=== PATIENT | female | born 1975 | race Caucasian/White ===

== ENCOUNTER 2016-11-06 13:58 | Emergency (ER) | payer OTHER, SELFPAY ==
[2016-11-06] MEDS ORDERED: methylPREDNISolone Acetate 40 mg/ml Vial ONE (15:08)
[2016-11-06] MEDS ORDERED: Dexamethasone 4 mg/ml Vial ONE (15:09)
--- NOTE | 2016-11-06 15:18 | RAD ---
LEFT WRIST THREE VIEWS: History: Navicular pain. Comparison: 08-22-16 FINDINGS: Intercarpal and radiocarpal joint spaces are preserved. Based on the images provided, no fractures. No cortical irregularity. IMPRESSION: Unremarkable left wrist radiographic series. POS: [facility]
--- NOTE | 2016-11-06 15:23 | ERRECORD ---
[facility] HPI WRIST (14:20 SHAN) CHIEF COMPLAINT: Patient presents for evaluation of pain, to the left wrist. HISTORIAN: History provided by patient. SEVERITY: gradually getting worse over last week; no recalled trauma. TIME COURSE: Gradual onset of symptoms. ROS (14:21 SHAN) CONSTITUTIONAL: Negative constitutional review of systems. EYES: Negative eye review of systems. ENT: Negative ears, nose, throat review of systems. CARDIOVASCULAR: Negative cardiovascular review of systems. RESPIRATORY: Negative respiratory review of systems. GI: Negative gastrointestinal review of systems. GENITOURINARY FEMALE: Negative genitourinary review of systems. MUSCULOSKELETAL: Negative musculoskeletal review of systems, left wrist pain. SKIN: Negative skin review of systems. NEUROLOGIC: Negative neurologic review of systems. ENDOCRINE: Negative endocrine review of systems. NOTES: All systems reviewed, negative except as described above. 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 verified 08/22/16. 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 PSYCHIATRIC HISTORY: no previous inpatient psychiatric admissions, Psychiatric history includes, bipolar disorder, Notes: HX DEPRESSION. SOCIAL HISTORY: Patient denies alcohol use, Patient denies drug use, Patient is a former tobacco user, smoked cigarettes, Tobacco history notes: quit 2 years ago, Lives at home, with family.verified. KNOWN ALLERGIES Iodinated Contrast Media - IV Dye: - tolerated if given benadryl first morphine (bulk) Sulfa (Sulfonamide Antibiotics) Toradol Oral CURRENT MEDICATIONS (14:13 BDON) None &a-1R&a+25V*p+0X*d7151U*c202B*c15G*c2P*p-0X&a-25V&a+1R Name: Maria De Jesus Venegas : 1975 F41 MedRec: [id number] AcctNum: [id number] Prepared: Olinda Nov 06, 2016 15:42 by Interface Page [address] [facility] [place] EMERGENCY RECORD VITAL SIGNS VITAL SIGNS: BP: 135/92, Pulse: 86, Resp: 17, Temp: 98.6 (Oral), Pain: 3, O2 sat: 99, Time: 11/06/2016 14:10. (14:10 BDON) Resp: 18, Pain: 3, Time: 11/06/2016 15:26. (15:26 BDON) PHYSICAL EXAM (14:21 SHAN) CONSTITUTIONAL: Patient afebrile, Pulse normal, Blood pressure normal, Respiratory rate normal, Patient appears non toxic, Patient appears pain free, Patient alert and oriented to person, place and time. HEAD: Head exam included findings of head atraumatic, normocephalic. EYES: Eye exam normal, Eye exam included findings of eyelids normal to inspection, Pupils equally round and reactive to light, Extraocular muscles intact. ENT: ENT exam normal, Pharynx exam normal, Uvula exam normal, Tonsil exam normal. NECK: Neck exam normal, Neck exam included findings of normal range of motion, Trachea midline. RESPIRATORY CHEST: Respiratory and chest exam normal, Chest exam included findings of chest movement symmetrical, Chest expansion equal, Percussion normal. CARDIOVASCULAR: Cardiovascular assessment normal, Cardiovascular exam included findings of heart rate regular rate and rhythm, Heart sounds normal. ABDOMEN FEMALE: Abdominal exam normal, Abdominal exam included findings of abdomen nontender, Bowel sounds normal. BACK: Back exam normal. UPPER EXTREMITY: Right arm and hand normal. Left wrist with medial tenderness, including over the navicular but not localized; more on turning the wrist. No visible deformity. Patient believes is swollen; but if is, is not clearly visible to examiner. 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 LOWER EXTREMITY: Lower extremity exam normal, Lower extremity exam included findings of inspection normal, Range of motion normal. NEURO: Neuro exam normal. SKIN: Skin exam normal. PSYCHIATRIC: Psychiatric exam normal, Psychiatric exam included findings of patient oriented to person place and time, Normal affect, Judgment normal, Insight normal. MEDICATION ADMINISTRATION SUMMARY Drug Name: Depo-Medrol intramuscular, Dose Ordered: 120 mg, Route: Intramuscular, Status: Given, Time: 15:22 11/06/2016, Drug Name: Decadron injection, Dose Ordered: 6 mg, Route: Intramuscular, Status: Given, Time: 15:21 11/06/2016, Detailed record available in Medication Service section. &a-1R&a+25V*p+0X*[id number]*c202B*c15G*c2P*p-0X&a-25V&a+1R Name: Maria De Jesus Venegas : 1975 11 MedRec: [id number] AcctNum: [id number] Prepared: Olinda Nov 06, 2016 15:42 by Interface Page [address] [facility] [place] EMERGENCY RECORD DOCTOR NOTES TEXT: Patient with left medial wrist pain, gradually worsening; no clear trauma. Exam w/o diagnostic assistance. (14:26 CAMILA) Discussed treatment options; is on aspirin for 'holes in heart'; anti-inflammatory agents/nsaids out; allowed brandi wrap and IM steroids. x-rays negative. (15:05 CAMILA) DATA REVIEWED: Xray data reviewed. (15:05 CAMILA) PROBLEM LIST No recorded problems DIAGNOSIS (15:06 CAMILA) FINAL: PRIMARY: tendonitis of left wrist. PRESCRIPTION No recorded prescriptions DISPOSITION PATIENT: Disposition Type: Discharge, Disposition: *Discharge Home. (15:06 CAMILA) Patient left the department. (15:37 BDKO) Rodríguez: RYAN=TOÑO Cunningham, Brigette JENSEN=MD Anisha, Dangelo &a-1R&a+25V*p+0X*[id number]*c202B*c15G*c2P*p-0X&a-25V&a+1R Name: Maria De Jesus Venegas : 1975 11 MedRec: [id number] AcctNum: [id number] Prepared: Olinda Nov 06, 2016 15:42 by Interface Page 3 of 3 pMD MTDD
--- NOTE | 2016-11-06 15:23 | PICIS ---
[facility] EMERGENCY RECORD TRIAGE (MonNov 06, 2016 14:13 BDON) TRIAGE NOTES: Left wrist "amy" some types of movement will make it hurt more. (MonNov 06, 2016 14:13 BDON) PATIENT: NAME: Maria De Jesus Venegas, AGE: 41, GENDER: female, : Mon1975, TIME OF GREET: MonNov 06, 2016 13:59, PREFERRED LANGUAGE: Guatemalan, ETHNICITY: Not or , ECODE BILLING MAP: [facility], SSN: [id number], Zip Code: [address], KG WEIGHT: 77.11, PHONE: , , , PERSON ID: [id number], PCP: out of town. ([place] Nov 06, 2016 14:13 BDON) COMPLAINT: PAIN IN RT WRIST. ([place] Nov 06, 2016 14:13 BDON) ADMISSION: URGENCY: 4 Non Urgent, ADMISSION SOURCE: Home, TRANSPORT: Walk-in, BED: TRIAGE. ([place] Nov 06, 2016 14:13 BDON) ASSESSMENT: Assessment: Left wrist pain, denies injury, hurts with certain motion, Symptoms began greater than 1 week ago. (14:15 BDON) LMP: Last menstrual period: 10/23/2016. (14:15 BDON) TREATMENTS IN PROGRESS: Treatments given Prehospital: tylenol 1000mg 1300. (14:15 BDON) PROVIDERS: TRIAGE NURSE: Brigette Cunningham RN. ([place] Nov 06, 2016 14:13 BDON) VITAL SIGNS: BP 135/92, Pulse 86, Resp 17, Temp 98.6, (Oral), Pain 3, O2 Sat 99, Time 11/06/2016 14:10. (14:10 BDON) PREVIOUS VISIT ALLERGIES: Iodinated Contrast Media - IV Dye, morphine (bulk), Sulfa (Sulfonamide Antibiotics), Toradol Oral. ([place] Nov 06, 2016 14:13 BDON) Iodinated Contrast Media - IV Dye, morphine (bulk), Sulfa (Sulfonamide Antibiotics), Toradol Oral. (14:15 BDON) KNOWN ALLERGIES Iodinated Contrast Media - IV Dye: - tolerated if given benadryl first morphine (bulk) Sulfa (Sulfonamide Antibiotics) Toradol Oral CURRENT MEDICATIONS (14:13 BDON) None VITAL SIGNS VITAL SIGNS: BP: 135/92, Pulse: 86, Resp: 17, Temp: 98.6 (Oral), Pain: 3, O2 sat: 99, Time: 11/06/2016 14:10. (14:10 BDON) Resp: 18, Pain: 3, Time: 11/06/2016 15:26. (15:26 BDON) NURSING ASSESSMENT: EXTREMITY UPPER (14:18 BDON) CONSTITUTIONAL: Patient arrives ambulatory, Gait steady, History obtained from patient, Patient appears comfortable, Patient cooperative, Patient alert, Oriented to person, place and time, Skin warm, Skin dry, Skin normal in color. PAIN: to the left wrist. &a-1R&a+25V*p+0X*y6647O*c202B*c15G*c2P*p-0X&a-25V&a+1R Name: Maria De Jesus Venegas : 1975 F41 MedRec: [id number] AcctNum: [id number] Prepared: Olinda Nov 06, 2016 15:48 by Interface Page 1 of 5 pMD [facility] EMERGENCY RECORD LEFT UPPER EXTREMITY: Left upper extremity assessment findings include capillary refill less than 2 seconds, Skin color normal to hand, Skin temperature to hand warm, Distal sensation intact, Muscle tone normal, Inspection findings include no swelling, Notes: "knot" on wrist...denies injury. SAFETY: Cart/Stretcher in lowest position, Family at bedside, Hospital ID band on, Patient in view of the nursing station. NURSING PROCEDURE: DISCHARGE NOTE (15:26 BDON) DISCHARGE: Patient discharged to home, ambulating without assistance, driving self, accompanied by other family member, Summary of Care printed/ provided, Patient requested and was provided an electronic copy of Discharge Instructions, Transition record given to patient, Discharge instructions given to patient, Simple or moderate discharge teaching performed, Prescriptions given and instructions on side effects given, Medication reconciliation form given, Above person(s) verbalized understanding of discharge instructions and follow-up care, Patient treated and evaluated by physician. VITAL SIGNS: Resp: 18, Pain: 3. NURSING PROCEDURE: SPLINTING (15:06 BDON) SPLINTING: Splinting indicated for pain control, Splint applied to, the left wrist, 3 inch brandi wrap applied. ORDER DETAILS Order Name: brandi wrap to left wrist, Status: Active, Time: 15:03 11/06/2016, User: CAMILA, - Ordered for: MD Lancaster Stanley, - Entered by: MD Lanacster Stanley - Olinda Nov 06, 2016 15:03, - Quantity: 1, Order Name: XR Wrist 3 Lt View STANDARD, Status: Active, Time: 14:25 11/06/2016, User: CAMILA, - Ordered for: MD Lancastre Stanley, - Entered by: MD Lancaster Stanley - Olinda Nov 06, 2016 14:25, - Quantity: 1. MEDICATION ADMINISTRATION SUMMARY Drug Name: Depo-Medrol intramuscular, Dose Ordered: 120 mg, Route: Intramuscular, Status: Given, Time: 15:22 11/06/2016, Drug Name: Decadron injection, Dose Ordered: 6 mg, Route: Intramuscular, Status: Given, Time: 15:21 11/06/2016, Detailed record available in Medication Service section. MEDICATION SERVICE Decadron injection: Order: Decadron injection (dexamethasone sod phosphate) - Dose: 6 mg : Intramuscular Schedule: Now Ordered by: Dangelo Lancaster MD &a-1R&a+25V*p+0X*i5182D*c202B*c15G*c2P*p-0X&a-25V&a+1R Name: Maria De Jesus Venegas : 1975 F41 MedRec: [id number] AcctNum: [id number] Prepared: Olinda Nov 06, 2016 15:48 by Interface Page 2 of 5 pMD [facility] EMERGENCY RECORD Entered by: MD Olinda Noyola Nov 06, 2016 15:04 Documented as given by: TOÑO Richards Nov 06, 2016 15:21 Patient, Medication, Dose, Route and Time verified prior to administration. IM medication, Amount given: 6 mg, Medication administered to left thigh, Correct patient, time, route, dose and medication confirmed prior to administration, Patient advised of actions and side-effects prior to administration, Allergies confirmed and medications reviewed prior to administration, im. Depo-Medrol intramuscular: Order: Depo-Medrol intramuscular (methylprednisolone acetate) - Dose: 120 mg : Intramuscular Schedule: Now Ordered by: Dangelo Lancaster MD Entered by: MD Olinda Noyola Nov 06, 2016 15:05 Documented as given by: TOÑO Richards Nov 06, 2016 15:22 Patient, Medication, Dose, Route and Time verified prior to administration. IM medication, Amount given: 120 mg, Medication administered to right thigh, Patient in position of comfort, Cart in lowest position, Family at bedside. HPI WRIST (14:20 SHAN) CHIEF COMPLAINT: Patient presents for evaluation of pain, to the left wrist. HISTORIAN: History provided by patient. SEVERITY: gradually getting worse over last week; no recalled trauma. TIME COURSE: Gradual onset of symptoms. ROS (14:21 SHAN) CONSTITUTIONAL: Negative constitutional review of systems. EYES: Negative eye review of systems. ENT: Negative ears, nose, throat review of systems. CARDIOVASCULAR: Negative cardiovascular review of systems. RESPIRATORY: Negative respiratory review of systems. GI: Negative gastrointestinal review of systems. GENITOURINARY FEMALE: Negative genitourinary review of systems. MUSCULOSKELETAL: Negative musculoskeletal review of systems, left wrist pain. SKIN: Negative skin review of systems. NEUROLOGIC: Negative neurologic review of systems. ENDOCRINE: Negative endocrine review of systems. NOTES: All systems reviewed, negative except as described above. 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 verified 08/22/16. 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 PSYCHIATRIC HISTORY: no previous inpatient psychiatric admissions, Psychiatric history includes, bipolar disorder, Notes: HX DEPRESSION. SOCIAL HISTORY: Patient denies alcohol use, Patient denies drug use, Patient is a former tobacco user, smoked cigarettes, Tobacco history notes: quit 2 years ago, Lives at home, with family.verified. PHYSICAL EXAM (14:21 SHAN) CONSTITUTIONAL: Patient afebrile, Pulse normal, Blood pressure normal, Respiratory rate normal, Patient appears non toxic, Patient appears pain free, Patient alert and oriented to person, place and time. HEAD: Head exam included findings of head atraumatic, normocephalic. EYES: Eye exam normal, Eye exam included findings of eyelids normal to inspection, Pupils equally round and reactive to light, Extraocular muscles intact. ENT: ENT exam normal, Pharynx exam normal, Uvula exam normal, Tonsil exam normal. NECK: Neck exam normal, Neck exam included findings of normal range of motion, Trachea midline. RESPIRATORY CHEST: Respiratory and chest exam normal, Chest exam included findings of chest movement symmetrical, Chest expansion equal, Percussion normal. CARDIOVASCULAR: Cardiovascular assessment normal, Cardiovascular exam included findings of heart rate regular rate and rhythm, Heart sounds normal. ABDOMEN FEMALE: Abdominal exam normal, Abdominal exam included findings of abdomen nontender, Bowel sounds normal. BACK: Back exam normal. UPPER EXTREMITY: Right arm and hand normal. Left wrist with medial tenderness, including over the navicular but not localized; more on turning the wrist. No visible deformity. Patient believes is swollen; but if is, is not clearly visible to examiner. 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 LOWER EXTREMITY: Lower extremity exam normal, Lower extremity exam included findings of inspection normal, Range of motion normal. NEURO: Neuro exam normal. SKIN: Skin exam normal. PSYCHIATRIC: Psychiatric exam normal, Psychiatric exam included findings of patient oriented to person place and time, Normal affect, Judgment normal, Insight normal. EVENTS TRANSFER: Triage to Emergency Triage. (14:13 BDON) &a-1R&a+25V*p+0X*y3840U*c202B*c15G*c2P*p-0X&a-25V&a+1R Name: Theo Maria De Jesus J : 1975 F41 MedRec: [id number] AcctNum: [id number] Prepared: Olinda Nov 06, 2016 15:48 by Interface Page 4 of 5 pMD [facility] EMERGENCY RECORD Emergency Triage to Emergency Room -04. (14:13 BDON) Removed from Emergency Emergency Room -04. (15:37 BDON) DOCTOR NOTES TEXT: Patient with left medial wrist pain, gradually worsening; no clear trauma. Exam w/o diagnostic assistance. (14:26 SHAN) Discussed treatment options; is on aspirin for 'holes in heart'; anti-inflammatory agents/nsaids out; allowed brandi wrap and IM steroids. x-rays negative. (15:05 SHAN) DATA REVIEWED: Xray data reviewed. (15:05 SHAN) PROBLEM LIST No recorded problems DIAGNOSIS (15:06 SHAN) FINAL: PRIMARY: tendonitis of left wrist. DISPOSITION PATIENT: Disposition Type: Discharge, Disposition: *Discharge Home. (15:06 SHAN) Patient left the department. (15:37 BDON) INSTRUCTION (15:07 CAMILA) DISCHARGE: TENDONITIS. SPECIAL: 1. Tylenol only as an additional option 2. followup with regular provider in about a week 3. return for further evaluation if condition worsens. PRESCRIPTION No recorded prescriptions IMAGING (15:36 BDON) *DISCHARGE INSTRUCTIONS RECEIPT: Image captured from scanner. *SUPPLY CHARGE SHEET: Image captured from scanner. ADMIN DIGITAL SIGNATURE: MD Anisha, Dangelo. (15:07 CAMILA) TOÑO Cunningham Bettye. (15:37 BDON) Rodríguez: RYAN=TOÑO Cunningham Bettye SHAN=MD Lancaster Stanley &a-1R&a+25V*p+0X*p6772C*c202B*c15G*c2P*p-0X&a-25V&a+1R Name: Maria De Jesus Venegas : 1975 F41 MedRec: [id number] AcctNum: [id number] Prepared: Olinda Nov 06, 2016 15:48 by Interface Page 5 of 5 pMD MTDD
== END 2016-11-06 15:26 | disposition home or self-care (01) ==
LOC: NAV ERS 13:58
DX: M77.9 Enthesopathy, unspecified (principal); M77.8 Other enthesopathies, not elsewhere classified; F31.9 Bipolar disorder, unspecified
CPT/HCPCS: 96372; J1030; J1100

== ENCOUNTER 2017-01-13 16:16 | Emergency (ER) | payer SELFPAY ==
[2017-01-13] MEDS ORDERED: predniSONE 20 MG TAB ONE (16:55)
[2017-01-13] MEDS ORDERED: Ketorolac Tromethamine 60 MG/2 ML VIAL ONE (16:55)
[2017-01-13] MEDS ORDERED: Acetaminophen/Codeine 30-300mg Tablet ONE (17:03)
== END 2017-01-13 17:22 | disposition home or self-care (01) ==
LOC: NAV ERS 16:16
DX: M75.21 Bicipital tendinitis, right shoulder (principal); M71.9 Bursopathy, unspecified; F31.9 Bipolar disorder, unspecified; Z86.73 Personal history of transient ischemic attack (TIA), and cerebral infarction without residual deficits; Z86.718 Personal history of other venous thrombosis and embolism
CPT/HCPCS: 99283; J1885; J7506

== ENCOUNTER 2017-08-04 06:37 | Emergency (ER) | payer MEDICAID, SELFPAY ==
[2017-08-04] MEDS ORDERED: Fentanyl 100 MCG/2 ML VIAL ONE (07:16)
[2017-08-04] MEDS ORDERED: Sodium Chloride 0.9% 1,000 ML ONE (07:16)
[2017-08-04] MEDS ORDERED: Ondansetron HCl/PF 4 MG/2 ML Vial ONE (07:16)
== END 2017-08-04 08:07 | disposition home or self-care (01) ==
LOC: NAV ERS 06:37
DX: R51 Headache (principal); F31.9 Bipolar disorder, unspecified; Z87.891 Personal history of nicotine dependence; Z86.73 Personal history of transient ischemic attack (TIA), and cerebral infarction without residual deficits
CPT/HCPCS: 96361; 96374; 96375; J2405; J3010; J7050

== ENCOUNTER 2018-04-27 18:15 | Emergency (ER) | payer MEDICAID, SELFPAY ==
[2018-04-27 19:03] LABS: #Basophils 0.1 thou/uL (0.0-0.2); #Lymphocytes 1.8 thou/uL (1.20-3.40); #Monocytes 0.8 thou/uL (0.11-0.59); #Neutrophils 8.1 thou/uL (1.40-6.50); %Basophils 0.6 % (0.0-1.0); %Eosinophils 0.4 % (0.0-10.0); %Lymphocytes 16.5 % (21.0-51.0); %Monocytes 7.5 % (0.0-10.0); Hemoglobin 15.4 g/dL (12.0-16.0); Mean Corpuscular HGB CONC 33.2 g/dL (32.0-36.0); Mean Corpuscular Hemoglobin 29.7 pg (27.0-31.0); Mean Corpuscular Volume 89.4 fL (78.0-98.0); Mean Platelet Volume 9.8 fL (7.4-10.4); Platelet Count 275 thou/uL (130-400); RBC Distribution Width 11.5 % (11.5-14.5); Red Blood Cell (RBC) Count 5.19 mill/uL (4.20-5.40); White Blood Cell (WBC) Count 10.8 thou/uL (4.8-10.8)
--- NOTE | 2018-04-27 19:05 | RAD ---
PORTABLE CHEST: 04/27/18 HISTORY: Mental status change. Lungs are clear. Heart and mediastinum unremarkable. IMPRESSION: No acute abnormality. POS: [facility]
--- NOTE | 2018-04-27 19:10 | CT ---
CT HEAD WITHOUT CONTRAST 04/27/18 Multiple axial tomograms obtained through the head without IV enhancement. INDICATIONS: Stroke protocol. Right side tingling. History of prior stroke. Comparison made to a head CT of 08/10/08. FINDINGS: Ventricles have normal size and position. No evidence of intracranial hemorrhage. No evidence of mass , edema, or acute infarct. Sinuses and mastoids are well aerated and appear clear. IMPRESSION: No evidence of acute process. Findings relayed to ER physician at 6:39 p.m. POS: [facility]
[2018-04-27 19:15] LABS: Bilirubin Small (Negative); Blood, Urine Negative (Negative); Glucose, Urine (Dipstick) Negative (Negative); Leukocyte Negative (Negative); Nitrite Positive (Negative); Protein, Urine (Dipstick) 30 mg/dL (Neg-Trace); pH, Urine 5.5 (5.0-9.0)
[2018-04-27 19:15] LABS: PTT 27.5 SEC (22.9-36.1); Prothrombin Time 13.7 SEC (12.0-14.7)
[2018-04-27 19:16] LABS: Clarity Hazy (Clear)
[2018-04-27 19:17] LABS: ALT (SGPT) 11 U/L (8-55); AST (SGOT) 17 U/L (5-34); Albumin 4.6 g/dL (3.5-5.0); Alkaline Phosphatase 68 U/L (40-150); Anion Gap 17 mmol/L (10-20); BUN (Urea Nitrogen) 11 mg/dL (7.0-18.7); Bilirubin, Total 0.6 mg/dL (0.2-1.2); CK (CPK) 78 U/L (29-168); Calc. Creatinine Clearance 0 mL/min (70-130); Calcium 10.3 mg/dL (7.8-10.44); Carbon Dioxide 22 mmol/L (22-29); Chloride 104 mmol/L (98-107); Estimated GFR-MDRD 65; Glucose 96 mg/dL (70-105); Potassium 4.4 mmol/L (3.5-5.1); Protein, Total 7.6 g/dL (6.0-8.3); Sodium 139 mmol/L (136-145)
[2018-04-27 19:18] LABS: Bacteria/HPF 4+ HPF (None Seen); Crystals/HPF 1+ CA OXALATE HPF (Negative); Specific Gravity, Urine 1.027 (1.002-1.036); Squamous Epithelial 0-3 HPF (0-3)
[2018-04-27 19:19] LABS: CKMB 0.9 ng/mL (0-6.6); Troponin I Less than 0.010 ng/mL (< 0.028)
== END 2018-04-27 19:43 | disposition short-term general hospital (02) ==
LOC: NAV ERS 18:15
DX: I63.9 Cerebral infarction, unspecified (principal); F31.9 Bipolar disorder, unspecified; Z87.891 Personal history of nicotine dependence; Z79.82 Long term (current) use of aspirin
CPT/HCPCS: 36416; 70450; 71045; 80053; 81003; 81015; 82550; 82553; 84484; 85025; 85610; 85730; 93005; 94760; 96374; 99292; J2997